=== PATIENT | female | born 1950 | race Caucasian/White ===

== ENCOUNTER 2016-12-25 05:26 | Day surgery (SDC) | payer OTHER ==
[2016-12-24 11:38] VITALS: Ht 165.1 cm; Wt 65.0 kg
--- NOTE | 2016-12-24 22:12 | PREOPHP ---
DATE OF ADMISSION: 12/25/2016 HISTORY OF PRESENT ILLNESS: This 67-year-old patient is admitted for elective cataract surgery of t he left eye. The patient has had progressive deterioration of vision in both eyes and underwent cat aract surgery 16 months ago in the right eye. The patient subsequently was diagnosed with a macular hole and underwent macular surgery to close the hole after that timeframe. SYSTEMIC HISTORY: The patient's systemic history is positive for hypothyroidism, zvs-ystupam-xpqtfk ent diabetes mellitus, hypertension, GERD, and hypercholesterolemia. CURRENT MEDICATIONS: Include: 1. Levothyroxine. 2. Metformin. 3. Lisinopril. 4. Atorvastatin. 5. Omeprazole. 6. Ibuprofen. 7. Cetirizine. 8. Aspirin. The aspirin and ibuprofen were discontinued 1 week prior to surgery. ALLERGIES: THERE ARE NO KNOWN ALLERGIES. PHYSICAL EXAMINATION: Visual acuity with best correction is 20/40 in each eye. Patient's reading v ision; however, is reduced to 20/70 in the left eye. Slit lamp examination reveals a posterior jacinto rene intraocular lens in appropriate position in the right eye and a nuclear sclerotic and posterior subcapsular cataract in the left eye. Applanation tonometry is 16 mmHg. Examination of the retina appears within normal limits. DIAGNOSIS: Cataract, left eye. PLAN: Cataract extraction with lens implant, left eye. The risks and alternatives to the surgery h ave been discussed with the patient and patient has opted to proceed with surgery in hopes of improv ing visual acuity leading to a greater ability to perform activities of daily living. Dictated By: RIAN SPRINGER/ANTONIO Conf#: [id number] DID#: [id number]
[~2016-12-25] VITALS: Ht 165.1 cm; Wt 65.0 kg
[2016-12-25] VITALS (7 sets, daily range): BP systolic 135–149; BP diastolic 68–77; PULSE 86–91; RESP 11–18
[~2016-12-25 05:26] MED LIST: ATOR20TA38 PO; CANA100T PO; CETI-240 PO; IBUP-1542 PO; LEVO125T71 PO; LISI20TA11 PO; OMEP20CA16 PO; ROSU5TAB5 PO
[2016-12-25] MEDS ORDERED: CARBACHOL 0.01% 1.5 ML OPH INJ ONE (06:40)
[2016-12-25] MEDS ORDERED: LIDOCAINE 4% (MPF) 5 ML INJ ONE (06:40)
[2016-12-25] MEDS ORDERED: CEFAZOLIN 1 GM INJ ONE (06:40)
[2016-12-25] MEDS ORDERED: DEXAMETHASONE 4 MG/ML 1 ML INJ ONE (06:41)
[2016-12-25] MEDS ORDERED: EPINEPHrine 1 MG INJ ONE (06:41)
[2016-12-25] MEDS ORDERED: GENTAMICIN 80 MG INJ ONE (06:41)
[2016-12-25] MEDS ORDERED: HYALURONATE/CHONDROITIN 1ML OPH INJ ONE (06:41)
[2016-12-25] MEDS ORDERED: DICLOFENAC 0.1% 2.5 ML OPH OPER SCH (07:00)
[2016-12-25] MEDS ORDERED: CIPROFLOXACIN 0.3% 2.5 ML OPH OPER SCH (07:00)
[2016-12-25] MEDS ORDERED: TROPICAMIDE 1% 2 ML OPH OPER SCH (07:00)
[2016-12-25] MEDS ORDERED: CYCLOPENTOLATE/PHENYLEPH 2 ML OPH OPER SCH (07:00)
[2016-12-25] MEDS ORDERED: ATOR20TA38 PO (07:44)
[2016-12-25] MEDS ORDERED: PROPOFOL 20 ML ONE (07:58)
[2016-12-25] MEDS ORDERED: LIDOCAINE 100 MG SYRINGE ONE (07:59)
[2016-12-25] MEDS ORDERED: HYDROmorphONE (0.2 MG/ML) 10ML SYG IV PRN ×3 (08:00)
[2016-12-25] MEDS ORDERED: LABETALOL HCL 20MG INJ IV PRN (08:00)
[2016-12-25] MEDS ORDERED: ATROPINE 1 MG/10 ML SYRINGE IV PRN (08:00)
[2016-12-25] MEDS ORDERED: hydrALAzine 20 MG INJ IV PRN (08:00)
[2016-12-25] MEDS ORDERED: OXYCODONE/ACETAMINOPHEN (5/325) TAB PO PRN ×2 (08:00)
[2016-12-25] MEDS ORDERED: ONDANSETRON 4 MG INJ IV PRN (08:00)
[2016-12-25] MEDS ORDERED: MIDAZOLAM 1 MG/ML 2 ML INJ IV PRN (08:00)
[2016-12-25] MEDS ORDERED: FENTAnyl 50 MCG/ML VIAL IV PRN ×2 (08:00)
[2016-12-25] MEDS ORDERED: morphine (1 MG/ML) 10ML SYRINGE IV PRN ×3 (08:00)
[2016-12-25] MEDS ORDERED: MEPERIDINE 25 MG INJ IV PRN (08:00)
[2016-12-25] MEDS ORDERED: EPHEDrine SULFATE 50 MG/5 ML SYG IV PRN (08:00)
[2016-12-25] MEDS ORDERED: DIPHENHYDRAMINE 50 MG INJ IV PRN (08:00)
[2016-12-25] MEDS ORDERED: CARBACHOL 0.01% 1.5 ML OPH INJ IO ONE (08:30)
[2016-12-25] MEDS ORDERED: HYALURONATE/CHONDROITIN 1ML OPH INJ IO ONE (08:30)
[2016-12-25] MEDS ORDERED: DEXAMETHASONE 4 MG/ML 1 ML INJ INJ ONE (08:30)
[2016-12-25] MEDS ORDERED: CEFAZOLIN 1 GM INJ INJ ONE (08:30)
[2016-12-25] MEDS ORDERED: LABETALOL HCL 20MG INJ ONE (08:42)
--- NOTE | 2016-12-25 10:06 | OPR ---
DATE OF OPERATION: 12/25/2016 PREOPERATIVE DIAGNOSIS: Cataract, left eye. POSTOPERATIVE DIAGNOSIS: Cataract, left eye. OPERATION PERFORMED: Cataract extraction with lens implant, left eye. SURGEON: Rian Kumar MD ANESTHESIA: Monitored anesthesia. ANESTHESIOLOGIST: Hernandez Jimenez MD PROCEDURE: The patient was brought to the operating room and placed on the table with an IV in plac e and the patient attached to an bus driver/monitor. Oxygen was given via face mask. After some intravenous sedation was administered, local anesthesia was given using Xylocaine 2% with epinephrine, mixed with Marcaine 0.5%. This was given in a lid block and retrobulbar injection. The patient was then prepped and draped in the usual sterile manner. A wire lid speculum was inserted between the lids of the left eye. A Superblade was used to enter th e anterior chamber at the corneoscleral limbus at the 10:30 o'clock position. A separate incision wa s made using a 3.0-mm keratome which entered the corneoscleral junction at the 12 o'clock position. Through this 3-mm opening, an irrigating cystitome was introduced into the anterior chamber. The peewee mber was filled with Viscoat and an anterior capsulotomy was performed. Balanced salt solution was t hen used for hydrodissection of the lens. A phacoemulsification handpiece was then brought into the field and introduced into the anterior chamber. The lens nucleus was emulsified using a deep groove and cracking the nucleus into quadrants. Following this, each quadrant was aspirated and emulsified at the pupillary margin. After this was completed, the irrigation/aspiration handpiece was brought to the field, introduced i nto the posterior chamber, and the lens cortical material was removed. When this was completed, raina tional Viscoat was injected into the anterior and posterior chambers. The 3-mm opening had its internal lips enlarged, and then the posterior chamber intraocular lens sukhwinder suring 24.5 diopters (Bausch and Lomb model LI61AO) was then injected into the posterior chamber usi ng the lens injector system. After the leading haptic was introduced into the capsular bag and the l ens optic was present in the center of the eye, the injector was removed and the trailing haptic was grasped with non-toothed forceps and introduced into the capsular fold superiorly. A Sinskey hook w as then used to rotate the intraocular lens so that the lips were oriented in the horizontal meridia n. One 10-0 nylon suture was placed across the wound. Prior to tying, the irrigation/aspiration handpiece was reintroduced into the anterior chamber to re move the Viscoat. Miochol was instilled to constrict the pupil, and then the 10-0 nylon suture was t ied. The ends were cut short and then the knot was buried. Then, 0.5 mL of dexamethasone and 0.5 mL of Ancef were injected into the sub-Tenon space in the infe rior fornix. Ciloxan drops were then placed on the surface of the eye. The speculum was removed and a patch was applied. The patient then left the operating room in satisfactory condition. Dictated By: RIAN SPRINGER/ANTONIO Conf#: [id number] DID#: [id number]
== END 2016-12-25 10:25 | disposition home or self-care (01) ==
LOC: SDS 05:26
PROVIDERS: ATTEND Ophthalmology
DX: H25.12 Age-related nuclear cataract, left eye (principal); E11.9 Type 2 diabetes mellitus without complications; E03.9 Hypothyroidism, unspecified; E78.00 Pure hypercholesterolemia, unspecified
CPT/HCPCS: 66984; 82962; J0171; J0690; J1100; J1580; J2001; V2632; Z7512; Z7610